=== PATIENT | female | born 1970 | race Caucasian/White ===

== ENCOUNTER 2025-01-16 07:18 | Outpatient (CLI) | payer MEDICAID, SELFPAY ==
--- NOTE | 2025-01-16 09:06 | ST.MBS ---
Date of Service Date of service: 01/16/25 Time of Service: 09:00 Modified Barium Swallow Study Findings: Video fluoroscopic Swallowing Evaluation (VFSE) / Modified Barium Swallow Study (MBSS) Speech Language Pathology Report Patient referred for VFSE/MBSS from [facility] given dysphagia symptoms. HPI & Patient report of function: Michelle is a 54 year old female with primary complaint of food sticking in lower throat. Margret reports symptoms began several years ago when she experienced full loss of voice, throat pain, and dysphagia/food sticking. She was seen by her PCP who referred for MBSS and ENT. She was ultimately seen by ENT at [facility] and reports she had 3 growths removed. She states they were non-cancerous, thyroid growths, and she did not require radiation treatment. (Report not available for review). Margret presents today with WFL vocal quality but persistent dysphagia. She states any food can get stuck in the base of her throat. Pills also get stuck here and can burn. Sometimes things stick in the lower esophagus as well. She usually does OK with liquids. She also endorses hx reflux and is on Omeprazole. she has occasional reflux symptoms even with medication management. She has had weightloss over the years but acknowledges other factors as well including financial. Previous Imaging: Patient reports endoscopy ~ 3 years ago, report not available for review IMPRESSIONS: Oral pharyngeal swallow function is grossly within functional limits. No evidence of motor or sensory impairment, significant pharyngeal residue, or aspiration. There is consistent transient penetration with thin liquids in light of slight delay in swallow initiation though overall this is grossly WFL and does not appear correlated to symptoms. With solids Margret does endorse pharyngeal residue sensation despite none appreciated on fluoroscopy. Thus, suspect perhaps some component of pharyngeal hypersensitivity contributing to symptoms and/or esophageal component with transferred sensation. Esophageal sweep/screening was completed to low sternal region without findings. She may benefit from further GI workup such as endoscopy. All results and film reviewed with patient and questions answered- no further GAS TECHNICIAN services indicated. Patient appears to be at low risk for potential aspiration PNA and/or pulmonary compromise and low risk for malnutrition, low risk for dehydration. Diet modification is not necessarily indicated though we did discuss favoring softer/moist foods. Specialist referrals:? Consider GI workup/repeat endoscopy if further workup indicated RECOMMENDATIONS: Diet Texture Recommendation:? IDDSI LEVEL SOLIDS 7-Regular/Easy to Chew Solids - Add extra moisture/favor naturally soft foods like soups/stews LIQUIDS 0-Thin Liquids MEDICATIONS Whole with water or consider taking in applesauce Risk Management Strategies:? Behavioral reflux precautions, including upright position during + 90 mins after meals. Small bites, approx [id number] Small sips, approx 10 mL PLAN: evaluation only OBJECTIVE Videofluoroscopic Swallow Evaluation (VFSE/MBSS) was conducted in the lateral and [id number] projection by Speech-Language Pathologist, in collaboration with Radiologist, to evaluate oropharyngeal swallow function. Anatomic view under fluoroscopy: WFL PO Barium Contrast Trials Oral barium water-soluble contrast was administered as follows: IDDSI Level 0 Varibar thin liquid (40% w/v) IDDSI Level 4 Varibar pudding/pureed/extremely thick (40% w/v) IDDSI Level 7 Regular Solid: 1/2 jossue cracker coated in 3 mL Varibar pudding MBSImP Component Scores: COMPONENT Scale SCORE 1 Lip closure (0-4) 0 Resulted in no labial escape 2 Hold Position (0-3) 0 Maintained a cohesive bolus between tongue to palatal seal 3 Bolus Preparation (0-4) 0 Resulted in timely and efficient chewing and mashing 4 Bolus Transport (0-4) 0 Was with brisk tongue motion 5 Oral Residue (0-4) 0 Was not observed. There was complete oral clearance 6 Swallow Initiation (0-4) 3 Occurred when the bolus head was in the pyriform sinuses 7 Soft Palate Elevation (0-4) 0 Resulted in no bolus between soft palate and the pharyngeal wall 8 Laryngeal Elevation (0-3) 1 Was decreased with partial superior movement of thyroid cartilage/partial approximation of arytenoids to epiglottic petiole 9 Anterior Hyoid Motion (0-2) 0 Demonstrated complete anterior movement 10 Epiglottic Movement (0-2) 0 Resulted in complete inversion 11 Laryngeal Closure (0-2) 0 Was complete with no air or contrast in laryngeal vestibule 12 Pharyngeal Stripping Wave (0-2) 0 Was present and complete 13 Pharyngeal Contraction (0-3) 0 Was complete 14 PES Opening (0-3) 0 Was completely distended and complete duration with no obstruction of flow 15 Tongue Base Retraction (0-4) 1 Allowed a trace column of contrast or air between tongue base and pharyngeal wall 16 Pharyngeal Residue (0-4) 1 Showed a trace within or on pharyngeal structures 17 Esophageal Clearance (0-4) 0 Was complete, with only a coating of contrast, if any Results: COMPONENT Scale SCORE 1 Oral Score (0-18) 3 2 Pharyngeal Score (0-29) 1 3 Esophageal Score (0-4) 0 Penetration-Aspiration Scale: COMPONENT Scale SCORE 1 Thin liquid (1-8) 2 Contrast entered the airway, remained above the vocal folds, and was ejected from the airway. 2 [place] thick (1-8) 1 Contrast did not enter the airway 3 Honey thick (1-8) NA 4 Pudding thick (1-8) 1 Contrast did not enter the airway 5 Cookie (1-8) 1 Contrast did not enter the airway Thank you for allowing us to take part in this patient's care. Please feel free to contact the [facility] Speech Language Pathology Department with any questions/concerns.
--- NOTE | 2025-01-16 09:40 | DI.RAD_ITS ---
Exam(s) RF MODIFIED SPEECH BA SWALLOW EXAM: RF MODIFIED SPEECH BA SWALLOW CLINICAL HISTORY: PAIN THROAT R07.0 DYSPHAGIA R13.10 SORE THROAT DIFFICULTY SWALLOWING TECHNIQUE: Modified barium swallow was performed in conjunction with speech pathology. CONTRAST MATERIAL: Multiple consistencies of oral barium contrast were administered. COMPARISON: No exams were available for comparison FINDINGS: Note that this is not a dedicated esophagram, distal esophagus not evaluated. There is no evidence of aspiration or penetration with any consistency. Speech pathology report to follow. IMPRESSION: No evidence of aspiration or penetration. RADIATION DOSE DELIVERED: wilman Cai=3.98 mGy
[2025-01-16] MEDS: Barium Sulfate 81% w/w for Oral Suspension 148 GM BTL PO (09:46)
[2025-01-16] MEDS: Barium Sulfate Oral Paste 40% W/V 230 ML TUBE PO (09:47)
== END 2025-01-16 07:38 ==
PROVIDERS: PCP Registered Nurse; Visit Provider Registered Nurse
DX: R13.10 Dysphagia, unspecified (principal); R07.0 Pain in throat
CPT/HCPCS: 92526; 74221